=== PATIENT | female | born 1945 | race Caucasian/White ===

== ENCOUNTER 2019-05-04 08:02 | Inpatient (IN) ==
--- NOTE | 2019-04-15 11:27 | Anesthesiology Consultation ---
Date of Service April 15, 2019 Assessment & Plan (1) Encounter for pre-operative examination: Chart Review Chart Review: Pending: Refer to Additional Notes / Consult section (Pending PAT testing) and Patient seen in Pre Admission Testing Consults Requested none History Surgery Operation Date: 05/04/19 10:15 Proposed Procedures p Left Total Knee Arthroplasty - César Chavez DO Height/Weight Height: 5 ft 6 in Weight: 67.4 kg Allergies Allergy/AdvReac Type Severity Reaction Status Date / Time naproxen [From Aleve] Allergy Unknown BLISTERING Verified 04/13/19 15:04 Penicillins Allergy Unknown RASH AND Verified 04/13/19 15:04 EYE SWELLING Medications Home Medications Medication Instructions Recorded Confirmed Last Taken alprazolam [Xanax] 0.25 mg PO DAILY PRN 04/13/19 04/13/19 Unknown amlodipine 5 mg PO QPM 04/13/19 04/13/19 Unknown aspirin [Aspirin Low Dose] 81 mg PO QAM 04/13/19 04/13/19 Unknown atorvastatin 10 mg PO PM 04/13/19 04/13/19 Unknown celecoxib [Celebrex] 200 mg PO QAM 04/13/19 04/13/19 Unknown cholecalciferol (vitamin D3) 1,000 unit PO QPM 04/13/19 04/13/19 Unknown [Vitamin D3] citalopram 20 mg PO QAM 04/13/19 04/13/19 Unknown esomeprazole magnesium [Nexium] 40 mg PO QAM 04/13/19 04/13/19 Unknown fluticasone furoate-vilanterol 1 inh INHALATION QAM 04/13/19 04/13/19 Unknown [Breo Ellipta] furosemide [Lasix] 20 mg PO DAILY PRN 04/13/19 04/13/19 Unknown gabapentin 300 mg PO HS 04/13/19 04/13/19 Unknown levothyroxine 75 mcg PO QAM 04/13/19 04/13/19 Unknown losartan 100 mg PO QAM 04/13/19 04/13/19 Unknown montelukast [Singulair] 10 mg PO PM 04/13/19 04/13/19 Unknown Past Medical History Medical History Allergies STRONG SCENTS Anxiety Asthma Chronic obstructive pulmonary disease Depression Diverticular disease GERD (gastroesophageal reflux disease) Hearing deficit 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 NO RESIDUAL EFFECT. ADMITTED TO [facility] FOR OVERNIGHT. Past Family History Family History Father Family history of diabetes mellitus Grandmother (Maternal) Family hx of colon cancer Grandmother (Maternal) Family history of esophageal cancer Past Surgical History Surgical History History of cataract surgery RIGHT AND LEFT WITH LENS IMPLANTS History of colonoscopy History of esophagogastroduodenoscopy (EGD) History of parathyroid surgery History of total left hip replacement History of total right hip replacement History of umbilical hernia repair Hx of appendectomy Hx of total hysterectomy Social History Smoking Status: Never smoker Do You Dip or Chew Tobacco: No Hx Alcohol Use: No Hx Substance Use: No Physical Exam Vital Signs Last Vital Signs Temp 36.7 C 04/15/19 10:53 Pulse 67 04/15/19 10:53 Resp 18 04/15/19 10:53 BP 109/62 04/15/19 10:53 Pulse Ox 98 04/15/19 10:53 ENMT Mouth: no TMJ abnormality Thyromental Distance: > or= 3.5 Finger Breadths Mallampati Class: II Neck normal visual inspection Respiratory normal respiratory effort Auscultation: lungs clear to auscultation bilaterally Cardiovascular Rate/Rhythm: regular rate and regular rhythm Neurologic moves all extremities Psychiatric Orientation: alert and oriented x 3
[2019-04-15 11:34] LABS: Basophils # (auto) 0.02 K/uL (0-0.2); Basophils % (auto) 0.2 %; Eosinophils # (auto) 0.11 K/uL (0-0.5); Hematocrit (blood only) 37.9 % (37-47); Hemoglobin 12.4 g/dL (12.0-16.0); Immature Granulocytes # (auto) 0.04 K/uL (0.00-0.02); Immature Granulocytes % (auto) 0.4 %; Lymphocytes # (auto) 0.95 K/uL (1.2-3.4); Lymphocytes % (auto) 8.5 %; Mean Corpuscular Hemoglobin 29.8 pg (25-34); Mean Corpuscular Hgb Conc 32.7 g/dL (32-36); Mean Corpuscular Volume 91.1 fL (80-100); Mean Platelet Volume 9.1 fL (7.4-10.4); Monocytes # (auto) 1.44 K/uL (0.11-0.59); Monocytes % (auto) 12.9 %; Neutrophils # (auto) 8.62 K/uL (1.4-6.5); Platelet Count 207 K/uL (130-400); RDW Coefficient of Variation 14.4 % (11.5-14.5); RDW Standard Deviation 48.6 fL (36.4-46.3); Red Blood Count 4.16 M/uL (4.2-5.4); White Blood Count 11.18 K/uL (4.8-10.8)
[2019-04-15 11:41] LABS: Albumin Level 3.5 gm/dl (3.4-5.0); BUN Creatinine Ratio 18.8 (10-20); Calcium 9.1 mg/dl (8.5-10.1); Creatinine Clr Calc Pharmacy 48.9 ml/min; Est GFR (African American) 69.7; Est GFR (Non-African American) 60.1; Potassium 3.8 mmol/L (3.5-5.1)
[2019-04-15 11:44] LABS: Partial Thromboplastin Ratio 0.9; Partial Thromboplastin Time 24.5 Seconds (21.0-31.0); Prothrombin Time 10.3 Seconds (9.0-12.0)
[2019-04-15 11:48] LABS: Appearance Urine Clear (Clear); Bacteria Urine Automated Negative (Negative); Bilirubin Urine Negative (Negative); Blood Urine Trace (Negative); Color Urine Yellow; Glucose Urine UA Negative (Negative); Ketones Urine Negative (Negative); Leukocyte Esterase Urine Negative (Negative); Nitrite Urine Negative (Negative); Protein Urine Negative (Negative); RBC Urine Automated 0-4 /hpf (0-4); Specific Gravity Urine 1.018 (1.000-1.030); Urobilinogen Urine Negative (Negative); pH Urine 5.5 (4.5-7.5)
[2019-04-15 12:06] LABS: Estimated Average Glucose 137 mg/dl; Hemoglobin A1C 6.4 % (4.5-5.6)
--- NOTE | 2019-04-15 12:08 | XRay Report ---
XR chest Pre-admission PA/Lat HISTORY: 73 years-old Female PAT preoperative exam. No acute chest complaints COMPARISON: None available TECHNIQUE: PA and lateral views of the chest FINDINGS: Cardiac silhouette is enlarged. No overt pulmonary edema. Linear subsegmental left basilar atelectasi s/scarring. Moderate hiatal hernia. No pneumothorax, pleural effusion or lobar airspace consolidation typical for pneumonia. Sigmoidal track lumbar scoliosis. Fusion hardware projects over the lower cer vical spine. Surgical clips of the right axilla. IMPRESSION: 1. Cardiomegaly without acute process. 2. Moderate sized hiatal hernia. The above report was generated using voice recognition software. It may contain grammatical, syntax o r spelling errors. Electronically signed by: Dharmesh Gan M.D. 04/15/2019 12:06 PM
--- NOTE | 2019-04-28 12:28 | History & Physical Report ---
Date of Service April 28, 2019 Date of surgery: 05-04-19 Assessment & Plan (1) Osteoarthritis of left knee: Further care discussed with Brinda and at this point in time has failed conservative measures and would like to proceed with a left total knee replacement. Plan on discharge will be home with home health physical therapy. DVT prophalaxis with TEDs, SCDs and will also place on aspirin 81 mg p.o. b.i.d. for a month postop. Patient will have follow up appointment in our office two w eeks post op for staple removal and re-evaluation. Patient otherwise has no other questions or concerns. History of Present Illness Chief Complaint: left knee pain Primary Care Provider: Richard Pardo Ms Hernandez is a 73 year old female who complains of left knee pain, presents for pre-op prior to a left total knee replacement. She presents with pain and stiffness on the left side. She states that the symptoms have been chronic non- traumatic. Patient reports left knee pain many years, progressively getting worse. Currently the patient states that the symptoms are moderate-severe. The pain is described as aching, discomforting and throbbing. current pain is 4/10 and worst is 7/10. The symptoms are aggravated by daily activities, ascending stairs, descending stairs, first steps while awake, kneeling, movement, repetitive activities, sleeping on the affected side, squatting and walking. In addition to left knee pain the patient is also experiencing decreased mobility, difficulty bending, difficulty going to sleep, limping, instability, nighttime awakening, pain, stiffness, tenderness and weakness. Prior NSAIDs include Celebrex and Ibuprofen. Prior pain medications include Tylenol. Patient has had previous therapy. At this point, her pain is affecting her ADLs and would like to proceed with a left total knee replacement. Allergies Allergy/AdvReac Type Severity Reaction Status Date / Time naproxen [From Aleve] Allergy Unknown BLISTERING Verified 04/13/19 15:04 Penicillins Allergy Unknown RASH AND Verified 04/13/19 15:04 EYE SWELLING Home Medications Home Medications Medication Instructions Recorded Confirmed Type alprazolam [Xanax] 0.25 mg PO DAILY PRN 04/13/19 04/13/19 History amlodipine 5 mg PO QPM 04/13/19 04/13/19 History aspirin [Aspirin Low Dose] 81 mg PO QAM 04/13/19 04/13/19 History atorvastatin 10 mg PO PM 04/13/19 04/13/19 History celecoxib [Celebrex] 200 mg PO QAM 04/13/19 04/13/19 History cholecalciferol (vitamin D3) 1,000 unit PO QPM 04/13/19 04/13/19 History [Vitamin D3] citalopram 20 mg PO QAM 04/13/19 04/13/19 History esomeprazole magnesium [Nexium] 40 mg PO QAM 04/13/19 04/13/19 History fluticasone furoate-vilanterol 1 inh INHALATION QAM 04/13/19 04/13/19 History [Breo Ellipta] furosemide [Lasix] 20 mg PO DAILY PRN 04/13/19 04/13/19 History gabapentin 300 mg PO HS 04/13/19 04/13/19 History levothyroxine 75 mcg PO QAM 04/13/19 04/13/19 History losartan 100 mg PO QAM 04/13/19 04/13/19 History montelukast [Singulair] 10 mg PO PM 04/13/19 04/13/19 History Past Med/Surg History Medical History Allergies STRONG SCENTS Anxiety Asthma Chronic obstructive pulmonary disease Depression Diverticular disease GERD (gastroesophageal reflux disease) Hearing deficit 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 NO RESIDUAL EFFECT. ADMITTED TO [facility] FOR OVERNIGHT. Surgical History History of cataract surgery RIGHT AND LEFT WITH LENS IMPLANTS History of colonoscopy History of esophagogastroduodenoscopy (EGD) History of parathyroid surgery History of total left hip replacement History of total right hip replacement History of umbilical hernia repair Hx of appendectomy Hx of total hysterectomy Family History Father Family history of diabetes mellitus Grandmother (Maternal) Family hx of colon cancer Grandmother (Maternal) Family history of esophageal cancer Social History Preferred Language: Taiwanese Communication Ability: Effective Beliefs That Will Affect Care: None Current Living Situation: Alone Feels Safe at Home: Yes Safety Concerns: Feels Safe At This Time Smoking Status: Never smoker Do You Dip or Chew Tobacco: No ; Second Hand Exposure: Yes ( WAS A SMOKER - PASSED 6-7 YR AGO) ; Hx Alcohol Use: No Hx Substance Use: No Review of Systems Review of Systems: All systems reviewed & are unremarkable except as noted in HPI & below Constitutional: no fever, no chills and no sweats Respiratory: no cough and no dyspnea Cardiovascular: no chest pain, no dyspnea and no orthopnea Gastrointestinal: no abdominal pain, no nausea and no vomiting Musculoskeletal: as per Subjective / HPI Physical Exam Physical Exam: Ht: 5ft 6in Wt: 67kg BP: 118/76 Pulse: 70 Constitutional: WD/WN, vitals as above no acute distress Respiratory: normal respiratory effort, lungs clear to auscultation no respiratory distress, no labored breathing and does not use accessory muscles Cardiovascular: RRR, no murmur, no edema Gastrointestinal (Abdomen): normal bowel sounds, soft, nontender, no hepatosplenomegaly Musculoskeletal: Knee: + knee abnormal to inspection (Left Knee: ), + effusion (+1 effusion), + surgical incision (well healed portals), + limited ROM of knee (ROM 0/3/110), + knee ROM with crepitation, + joint line tenderness (medial joint line) and + Anthony's sign positive; no deformity, no skin erythema, no ecchymosis, no valgus laxity, no varus laxity, anterior drawer test negative, Monroe's sign negative and pivot shift test negative Results & Data Laboratory Results Laboratory Results WBC 11.18 K/uL (4.8-10.8) H 04/15/19 11:01 RBC 4.16 M/uL (4.2-5.4) L 04/15/19 11:01 Hgb 12.4 g/dL (12.0-16.0) 04/15/19 11:01 Hct 37.9 % (37-47) 04/15/19 11:01 MCV 91.1 fL (80-100) 04/15/19 11:01 MCH 29.8 pg (25-34) 04/15/19 11:01 MCHC 32.7 g/dL (32-36) 04/15/19 11:01 RDW Std Deviation 48.6 fL (36.4-46.3) H 04/15/19 11:01 RDW Coeff of Jason 14.4 % (11.5-14.5) 04/15/19 11:01 Plt Count 207 K/uL (130-400) 04/15/19 11:01 MPV 9.1 fL (7.4-10.4) 04/15/19 11:01 Immature Gran % (Auto) 0.4 % 04/15/19 11:01 Neut % (Auto) 77.0 % 04/15/19 11:01 Lymph % (Auto) 8.5 % 04/15/19 11:01 [place] % (Auto) 12.9 % 04/15/19 11:01 Eos % (Auto) 1.0 % 04/15/19 11:01 Baso % (Auto) 0.2 % 04/15/19 11:01 Immature Gran # (Auto) 0.04 K/uL (0.00-0.02) H 04/15/19 11:01 Neut # (Auto) 8.62 K/uL (1.4-6.5) H 04/15/19 11:01 Lymph # (Auto) 0.95 K/uL (1.2-3.4) L 04/15/19 11:01 [place]ry # (Auto) 1.44 K/uL (0.11-0.59) H 04/15/19 11:01 Eos # (Auto) 0.11 K/uL (0-0.5) 04/15/19 11:01 Baso # (Auto) 0.02 K/uL (0-0.2) 04/15/19 11:01 PT 10.3 Seconds (9.0-12.0) 04/15/19 11:01 INR 1.0 (0.9-1.1) 04/15/19 11:01 APTT 24.5 Seconds (21.0-31.0) 04/15/19 11:01 PTT Ratio 0.9 04/15/19 11:01 Sodium 142 mmol/L (136-145) 04/15/19 11:01 Potassium 3.8 mmol/L (3.5-5.1) 04/15/19 11:01 Chloride 108 mmol/L (98-107) H 04/15/19 11:01 Carbon Dioxide 28 mmol/L (21-32) 04/15/19 11:01 Anion Gap 6.0 (3-11) 04/15/19 11:01 BUN 17 mg/dl (7-18) 04/15/19 11:01 Creatinine 0.93 mg/dl (0.6-1.2) 04/15/19 11:01 Est Cr Clr Drug Dosing 48.9 ml/min 04/15/19 11:01 Est GFR ( Amer) 69.7 04/15/19 11:01 Est GFR (Non-Af Amer) 60.1 04/15/19 11:01 BUN/Creatinine Ratio 18.8 (10-20) 04/15/19 11:01 Glucose 104 mg/dl (70-99) H 04/15/19 11:01 Estimat Average Glucose 137 mg/dl 04/15/19 11:01 Hemoglobin A1c 6.4 % (4.5-5.6) H 04/15/19 11:01 Calcium 9.1 mg/dl (8.5-10.1) 04/15/19 11:01 Albumin 3.5 gm/dl (3.4-5.0) 04/15/19 11:01 Urine Color Yellow 04/15/19 Unknown Urine Appearance Clear (Clear) 04/15/19 Unknown Urine pH 5.5 (4.5-7.5) 04/15/19 Unknown Ur Specific [place] 1.018 (1.000-1.030) 04/15/19 Unknown Urine Protein Negative (Negative) 04/15/19 Unknown Urine Glucose (UA) Negative (Negative) 04/15/19 Unknown Urine Ketones Negative (Negative) 04/15/19 Unknown Urine Blood Trace (Negative) H 04/15/19 Unknown Urine Nitrite Negative (Negative) 04/15/19 Unknown Urine Bilirubin Negative (Negative) 04/15/19 Unknown Urine Urobilinogen Negative (Negative) 04/15/19 Unknown Ur Leukocyte Esterase Negative (Negative) 04/15/19 Unknown Urine WBC (Auto) 1-5 /hpf (0-5) 04/15/19 Unknown Urine RBC (Auto) 0-4 /hpf (0-4) 04/15/19 Unknown U Hyaline Cast (Auto) 1-5 /lpf (0-5) 04/15/19 Unknown U Epithel Cells (Auto) 5-10 /lpf (0-5) H 04/15/19 Unknown Urine Bacteria (Auto) Negative (Negative) 04/15/19 Unknown Blood Type A Positive 04/15/19 11:01 Antibody Screen NEGATIVE 04/15/19 11:01 Diagnostic Findings Left Knee X-ray confirms advanced degenerative changes to the left knee, greatest medial compartments and patellofemoral joint, showing joint space narrowing, osteophyte formation and subchondral sclerosis. no acute bony pathology noted.
[~2019-05-04 08:02] MED LIST: ACETAMINOPHEN 500 MG TAB PO SCH; BUPIVACAINE 0.5 % 5 MG/1 ML PF 10ML VIAL ONE; CEFAZOLIN 1000MG 1,000 MG/7.5 ML SYR IV SCH; CeleBREX 200 MG CAP PO SCH; EPINEPHrine INJ 1 MG/ML AMP ONE; GABAPENTIN 300 MG CAP PO SCH; LR 500ML BOLUS, THEN 15ML/HR IV SCH; ROPIVACAINE 0.5% 5 MG/ML 30 ML VIAL ONE; ROPIVACAINE 0.5% HCL/PF 150 MG, BUPIVACAINE 0.5% MPF 30 ML, EPINEPHrine 30MG/30ML (OR U... INSTIL SCH; TRANEXAMIC ACID 1,000 MG **IV Intra-op IV SCH; TRANEXAMIC ACID 1,000 MG **IV Pre-op IV SCH; dexAMETHasone 4 MG TAB PO SCH
--- NOTE | 2019-05-04 08:39 | History & Physical Bridge Note ---
Date of Service May 04, 2019 History & Physical Bridge Note I have examined the patient, reviewed the History & Physical and in the interval since the performance of the History & Physical I have noted the following changes of clinical significance: no changes noted
[2019-05-04] MEDS ORDERED: MIDAZOLAM HCL 1 MG/ML 2ML VIAL ONE ×2 (09:01→11:38)
[2019-05-04] MEDS ORDERED: LIDOCAINE HCL 2% 2 ML VIAL/AMP(20MG/ML) INFIL ONE (09:01)
[2019-05-04] MEDS ORDERED: fentaNYL citrate 100 MCG/2 ML VIAL ONE (09:01)
[2019-05-04] MEDS ORDERED: PROPOFOL IV EMULSION 10 MG/ML 20 ML VIAL IV ONE (09:01)
[2019-05-04] MEDS ORDERED: ORTHO JOINT ANESTHETIC ONE (09:58)
[2019-05-04] MEDS ORDERED: BACITRACIN INJ 50,000 UNIT VIAL ONE (09:58)
[2019-05-04] MEDS ORDERED: ATROPINE SULFATE 0.1 MG/ML 10ML SYR IV PRN (11:15)
[2019-05-04] MEDS ORDERED: ePHEDrine sulfate 50 MG/ML AMP IV PRN (11:15)
--- NOTE | 2019-05-04 12:13 | Operative Report ---
Post Operative Report Pre & Post Diagnosis Operation Date: 05/04/19 10:40 Pre-Op Diagnosis: Unilateral Primary Osteoarthritis, Left Knee Post-Op Diagnosis: Unilateral Primary Osteoarthritis, Left Knee I identified the patient and participated in the time-out.: Yes Procedure Operation Date: 05/04/19 10:40 Actual Procedures p Left Total Knee Arthroplasty(Left) utilizing [employer]ino [employer] Nephew journey 2 non- block total knee arthroplasty size 4 femur 3 tibia 10 polyethylene 29 oval patella- César Chavez DO Surgeon César Chavez DO Foreign Language Teacher Klaus RANDLE Estimated Blood Loss 5 Findings Consistent with Post-Op Diagnosis Patient presents with severe end-stage tricompartmental degenerative joint disease of the left knee no response to conservative management eburnated bone subchondral cystic changes marginal osteophytes moderate to large effusion varus alignment Specimens Bone card Drains Meeting more him of Complications none Disposition Accompanied Patient To Recovery: No Disposition: Recovery Room Indications Patient presents is a 73-year-old white female being seen evaluate with swelling going pain through the left knee nonresponse to conservative management including physical therapy anti-inflammatories relative rest activity modification corticosteroid injection Visco supplementation patient presents with the above intraoperative findings as noted above. Description of Procedure After proper identification of the patientAfter proper prepping and draping of the left lower extremity anterior midline incision was made over the region of the extensor extensor mechanism after meticulous hemostasis was obtained and maintained in subcutaneous tissues a medial parapatellar incision was made The patella was subluxed lateralward the medial lateral gutter were cleaned from any hypertrophic synovitis and scar tissue of the distal femoral block was placed and the distal femoral osteotomy cut was made subsequently the chamfers anterior and posterior osteotomy cuts were made utilizing the 4-in-1 block the tibia was subsequently subluxed anteriorward medial and ateral meniscal remnants were excised in their entirety remnants of the anterior and posterior cruciate ligaments were excised in their entirety excellent exposure of the proximal tibia was obtained the tibial osteotomy guide was placed on the proximal tibial osteotomy cut was made once again the knee was irrigated with copious amounts of sterile saline solution the patella was subsequently everted lateralward thickened scar tissue around the patella was removed the patella was subsequently cut utilizing a freehand technique and was drilled prepared for final preparation and placement of patella socially flexion-extension gaps were checked and the equal and symmetric trials were placed to the appropriate femoral and tibial trials with poly-spacer being placed for equal flexion and extension gaps and full range of motion including extension to 0 and flexion to 140 the trial components after having been taken to recovery range of motion was subsequently removed meticulous hemostasis was obtained and maintained subsequently a knee block injection of joint cocktail including ropivacaine 0.5% 150 mg. Bupivacaine 0.5% epinephrine 1-200,030 mL's toradol 30 mg dexamethasone 4 mg ketamine 10 mg clonidine 100 micrograms normal saline solution 30 mg was infiltrated into the soft tissues of the posterior knee medial lateral gutters and periosteal synovium special attention was paid to protect neurovascular structures at all times subsequently trial components having been removed the knee was irrigated with sterile saline solution. debris was removed the proximal tibia was subsequently prepared and was made ready for the placement of the tibial component tibial component was also cemented and tamped into position the femoral component was subsequently placed and cemented in the position the patellar component was subsequently cemented in position because hemostasis once again obtained and maintained wound having been thoroughly irrigated with debridement and debridement lavage was performed as well as a medial parapatellar incision closed with #1 Vicryl in interrupted fashion subcutaneous was closed with #2 Vicryl skin was closed with skin clips. PA-C was necessary for prepping and drapping as well as wound closure of deep fascia Sub cutaneous tissue and skin and was necessary for the case. A sterile compressive dressing was placed patient was taken to recovery in stable condition of report dictated by Scott I attest to the content of the Intraoperative Record and any orders documented therein. Any exceptions are noted below. I attest to the content of the Intraoperative Record and any orders documented therein. Any exceptions are noted below.
--- NOTE | 2019-05-04 13:38 | XRay Report ---
XR knee LT 2V routine CLINICAL HISTORY: Surgical Post Op COMPARISON: None. DISCUSSION: There are postsurgical changes of a total left knee arthroplasty and patellar resurfacing . Overlying skin lissette and surgical drains are evident. The femoral tibial components appear well s eated. There is air within the soft tissues consistent with recent surgery. IMPRESSION: Postsurgical changes of a total left knee arthroplasty. Electronically signed by: Js Navarro M.D. 05/04/2019 1:36 PM
--- NOTE | 2019-05-04 13:50 | Anesthesiology Progress Note ---
Date of Service May 04, 2019 Anesthesia Post Procedure Vital Signs Vital Signs: Temp Pulse Pulse Resp BP Pulse Ox 05/04/19 13:45 61 16 102/54 L 94 05/04/19 13:35 63 16 111/59 L 95 05/04/19 13:25 64 16 109/57 L 93 05/04/19 13:15 62 16 112/58 L 96 05/04/19 13:05 67 16 111/58 L 94 05/04/19 12:58 36.4 C L 72 16 99/60 L 93 05/04/19 08:44 36.7 C 64 20 125/75 95 Pain Intensity Generalized: Pain Intensity: 3 Transfer of Care Handoff Completed per policy Notes Mental Status: alert / awake / arousable Patient Amnestic to Procedure: Yes Nausea / Vomiting: adequately controlled Pain: adequately controlled Airway Patency, RR, SpO2: stable & adequate BP & HR: stable & adequate Hydration State: stable & adequate Neuraxial Anesthesia: was administered and sensory block is resolving Anesthetic Complications: no major complications apparent
[2019-05-04] MEDS ORDERED: ONDANSETRON INJ 2 MG/ML 2 ML VIAL IV PRN (14:21)
[2019-05-04] MEDS ORDERED: bisacodyL 10 MG SUPP PR PRN (14:21)
[2019-05-04] MEDS ORDERED: MAGNESIUM HYDROXIDE SUSP 30 ML UDC PO PRN (14:21)
[2019-05-04] MEDS ORDERED: NALOXONE HCL 0.4 MG/1 ML VIAL/CARP IV PRN (14:21)
[2019-05-04] MEDS ORDERED: ALPRAZolam 0.25 MG TABLET PO PRN (14:21)
[2019-05-04] MEDS: SODIUM CHLORIDE 0.9% 1000ML 1,000 ML IV SCH (14:45)
--- NOTE | 2019-05-04 16:27 | Hospitalist Consultation ---
Date of Consultation May 04, 2019 Assessment & Plan (1) Post-operative state: s/p L TOMÁS 05/04 Pain control, dvt proph per primary Monitor for acute blood loss - cbc am (2) Hypertension: continue amlodipine, hold losartan pod #1 to avoid hypotension prp am (3) GERD (gastroesophageal reflux disease): Continue ppi (4) COPD (chronic obstructive pulmonary disease): Continue montelukast, Breo ellipta (5) Hyperlipemia: continue atorvastatin History of Present Illness Attending Physician: César Chavez, History of Present Illness Ms. Hernandez is post left TKA today with Dr. Chavez. Her pain is well controlled and she is feeling good since surgery. Past medical history of COPD, asthma, hypothyroid, GERD, htn, hld Social: lives alone, retired [employer], never smoker, occasional alcohol Family: father of cancer and had CAD, DM; Mother with heart disease and dementia Allergies Allergy/AdvReac Type Severity Reaction Status Date / Time naproxen [From Aleve] Allergy Mild BLISTERING Verified 05/04/19 08:37 Penicillins Allergy Mild RASH AND Verified 05/04/19 08:37 EYE SWELLING oxycodone AdvReac Intermediate nightmares Verified 05/04/19 09:15 and hallucinations Home Medications Home Medications Medication Instructions Recorded Confirmed Type alprazolam [Xanax] 0.25 mg PO DAILY PRN 04/13/19 05/04/19 History amlodipine 5 mg PO QPM 04/13/19 05/04/19 History aspirin [Aspirin Low Dose] 81 mg PO QAM 04/13/19 05/04/19 History atorvastatin 10 mg PO PM 04/13/19 05/04/19 History celecoxib [Celebrex] 200 mg PO QAM 04/13/19 05/04/19 History cholecalciferol (vitamin D3) 1,000 unit PO QPM 04/13/19 05/04/19 History [Vitamin D3] citalopram 20 mg PO QAM 04/13/19 05/04/19 History esomeprazole magnesium [Nexium] 40 mg PO QAM 04/13/19 05/04/19 History fluticasone furoate-vilanterol 1 inh INHALATION QAM 04/13/19 05/04/19 History [Breo Ellipta] furosemide [Lasix] 20 mg PO DAILY PRN 04/13/19 05/04/19 History gabapentin 300 mg PO HS 04/13/19 05/04/19 History levothyroxine 75 mcg PO QAM 04/13/19 05/04/19 History losartan 100 mg PO QAM 04/13/19 05/04/19 History montelukast [Singulair] 10 mg PO PM 04/13/19 05/04/19 History Patient History Medical History Allergies STRONG SCENTS Anxiety Asthma Chronic obstructive pulmonary disease Depression Diverticular disease GERD (gastroesophageal reflux disease) Hearing deficit 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 NO RESIDUAL EFFECT. ADMITTED TO [facility] FOR OVERNIGHT. Surgical History History of cataract surgery RIGHT AND LEFT WITH LENS IMPLANTS History of colonoscopy History of esophagogastroduodenoscopy (EGD) History of parathyroid surgery History of total left hip replacement History of total right hip replacement History of umbilical hernia repair Hx of appendectomy Hx of total hysterectomy Family History Father Family history of diabetes mellitus Grandmother (Maternal) Family hx of colon cancer Grandmother (Maternal) Family history of esophageal cancer Social History Preferred Language: Gambian Communication Ability: Effective Beliefs That Will Affect Care: None Current Living Situation: Alone Feels Safe at Home: Yes Safety Concerns: Feels Safe At This Time Smoking Status: Never smoker Do You Dip or Chew Tobacco: No ; Second Hand Exposure: Yes ( WAS A SMOKER - PASSED 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 YR AGO) ; Hx Alcohol Use: No Hx Substance Use: No Review of Systems Constitutional: no fever, no chills and no body aches Respiratory: no cough, no chest congestion and no dyspnea Cardiovascular: no chest pain, no palpitations and no lightheadedness Gastrointestinal: no abdominal pain and no nausea Genitourinary: no dysuria, no difficulty urinating and no urinary frequency Musculoskeletal: no joint pain Integumentary: + rash Physical Exam Physical Exam: General: no distress Eyes: normal inspection, PERLL Respiratory: chest non tender, clear to auscultation, normal breath sounds, no respiratory distress, no accessory muscle use Cardiac: regular rate and rhythm, no rub or gallop, no murmur, no edema, no jvd GI/: active bowel sounds, no abd pain or tenderness, soft, non distended Extremities: normal range of motion, normal strength, non tender Neuro/Psych: alert and oriented x 3, normal mood and affect Skin: normal color, dry Results & Data Vital Signs (Past 12 Hours) Vital Signs Temp Pulse Pulse Resp BP Pulse Ox 05/04/19 16:17 36.5 C 65 17 104/59 L 96 05/04/19 15:19 36.7 C 66 17 107/69 96 05/04/19 14:39 65 18 114/76 93 05/04/19 14:15 36.6 C 68 15 95/51 L 94 05/04/19 13:55 36.6 C 63 20 108/59 L 95 05/04/19 13:45 61 16 102/54 L 94 05/04/19 13:35 63 16 111/59 L 95 05/04/19 13:25 64 16 109/57 L 93 05/04/19 13:15 62 16 112/58 L 96 05/04/19 13:05 67 16 111/58 L 94 05/04/19 12:58 36.4 C L 72 16 99/60 L 93 05/04/19 08:44 36.7 C 64 20 125/75 95 PG Care Time/CCT Total # of Minutes Spent Total Time Spent with Patient: Total time spent is greater than 50% in coordination of care (as documented) at patient's floor/unit and/or counseling patient:
[2019-05-04] MEDS: CEFAZOLIN 1000MG 1,000 MG/7.5 ML SYR IV SCH (20:58)
[2019-05-04] MEDS: ASPIRIN 81 MG ECTAB PO SCH (21:00)
[2019-05-04] MEDS: ATORVASTATIN 10 MG TAB PO SCH (21:00)
[2019-05-04] MEDS: CeleBREX 200 MG CAP PO SCH (21:02)
[2019-05-04] MEDS: DOCUSATE SODIUM 100 MG CAP PO SCH (21:02)
[2019-05-04] MEDS: GABAPENTIN 300 MG CAP PO SCH (21:03)
[2019-05-04] MEDS: AMLODIPINE BESYLATE 5 MG TAB PO SCH (21:03)
[2019-05-04] MEDS: MONTELUKAST SODIUM 10 MG TABLET PO SCH (21:03)
[2019-05-04] MEDS: SENNA 8.6 MG TAB PO SCH (21:04)
[2019-05-04] MEDS: CHOLECALCIFEROL 1,000 UNITS TAB PO SCH (21:05)
[2019-05-04] MEDS: HYDROCODONE/ACETAMOPHEN 5/325MG TAB PO PRN (21:12)
[2019-05-05] MEDS: SODIUM CHLORIDE 0.9% 1000ML 1,000 ML IV SCH (01:33)
[2019-05-05] MEDS: CEFAZOLIN 1000MG 1,000 MG/7.5 ML SYR IV SCH (02:46)
[2019-05-05] MEDS: HYDROCODONE/ACETAMOPHEN 5/325MG TAB PO PRN ×4 (02:52→20:38)
[2019-05-05] MEDS: HYDROmorphone INJ 0.5 MG/0.5 ML SYR IV PRN ×3 (03:55→23:42)
[2019-05-05 05:23] LABS: Hematocrit (blood only) 31.4 % (37-47); Hemoglobin 10.7 g/dL (12.0-16.0); Mean Corpuscular Hemoglobin 30.7 pg (25-34); Mean Corpuscular Hgb Conc 34.1 g/dL (32-36); Mean Platelet Volume 8.3 fL (7.4-10.4); Platelet Count 229 K/uL (130-400); RDW Coefficient of Variation 13.8 % (11.5-14.5); RDW Standard Deviation 45.4 fL (36.4-46.3); Red Blood Count 3.49 M/uL (4.2-5.4); White Blood Count 15.96 K/uL (4.8-10.8)
[2019-05-05 05:56] LABS: Calcium 8.1 mg/dl (8.5-10.1); Creatinine Clr Calc Pharmacy 59.1 ml/min; Est GFR (African American) 87.5; Est GFR (Non-African American) 75.5; Potassium 4.5 mmol/L (3.5-5.1)
[2019-05-05] MEDS: LEVOTHYROXINE SODIUM 75 MCG TABLET PO SCH (05:58)
[2019-05-05] MEDS: LOSARTAN POTASSIUM 50 MG TAB PO SCH (08:10)
[2019-05-05] MEDS: FLUTICASONE/SALMETEROL 100/50 (ADVAIR) 14 PUFF/1 INHALER INH SCH ×2 (08:10→20:35)
[2019-05-05] MEDS: MULTIVITAMIN TAB PO SCH (08:11)
[2019-05-05] MEDS: ASPIRIN 81 MG ECTAB PO SCH ×2 (08:11→20:34)
[2019-05-05] MEDS: CeleBREX 200 MG CAP PO SCH ×2 (08:11→20:34)
[2019-05-05] MEDS: CITALOPRAM 20 MG TAB PO SCH (08:11)
[2019-05-05] MEDS: PANTOprazole 40 MG TAB PO SCH (08:11)
[2019-05-05] MEDS: DOCUSATE SODIUM 100 MG CAP PO SCH ×2 (08:12→20:34)
--- NOTE | 2019-05-05 08:38 | Anesthesiology Progress Note ---
Date of Service May 05, 2019 Anesthesia Post Procedure Vital Signs Vital Signs: Temp Pulse Pulse Resp BP Pulse Ox 05/05/19 07:30 36.5 C 58 L 16 108/65 92 05/05/19 02:53 36.4 C L 61 16 109/59 L 92 05/05/19 00:17 119/65 05/04/19 23:35 36.3 C L 59 L 16 107/60 93 05/04/19 20:00 123/76 05/04/19 17:21 36.5 C 62 17 97/56 L 95 05/04/19 16:17 36.5 C 65 17 104/59 L 96 05/04/19 15:19 36.7 C 66 17 107/69 96 05/04/19 14:39 65 18 114/76 93 05/04/19 14:15 36.6 C 68 15 95/51 L 94 05/04/19 13:55 36.6 C 63 20 108/59 L 95 05/04/19 13:45 61 16 102/54 L 94 05/04/19 13:35 63 16 111/59 L 95 05/04/19 13:25 64 16 109/57 L 93 05/04/19 13:15 62 16 112/58 L 96 05/04/19 13:05 67 16 111/58 L 94 05/04/19 12:58 36.4 C L 72 16 99/60 L 93 05/04/19 08:44 36.7 C 64 20 125/75 95 Pain Intensity Generalized: Pain Intensity: 3 Left Knee: Pain Intensity: 3 Notes Mental Status: alert / awake / arousable and participated in evaluation Patient Amnestic to Procedure: Yes Nausea / Vomiting: adequately controlled Pain: adequately controlled Airway Patency, RR, SpO2: stable & adequate BP & HR: stable & adequate Hydration State: stable & adequate Neuraxial Anesthesia: was administered and sensory block resolved Anesthetic Complications: no major complications apparent and Pt Satisfied with anesthetic care
--- NOTE | 2019-05-05 09:51 | Orthopedic Progress Note ---
Date of Service May 05, 2019 Assessment & Plan (1) Osteoarthritis of left knee: POD#1 Left TKA -Pain management -PT/OT -DVT prophylaxis-ASA 81mg BID, SCDs, TEDs -AM labs-hemoglobin 10.7 from 12.4 preop. BPs have been running a little low, patient is asymptomatic. Will monitor -D/C planning-home with home health PT when stable. Subjective Patient is POD#1 left TKA. Doing well overall, mild pain. BPs have been running low, she is asymptomatic. Denies complaitns. No chest pain, sob, dizziness, headaches, n/v/d. Review of Systems Review of Systems: All systems reviewed & are unremarkable except as noted in HPI & below Physical Exam Physical Exam: Patient sitting in bedside chair getting ready to participate in PT. No calf tenderness. Dressing is c/d/i, hemovac intact. Good dorsiflexion of her ankle. N/V status and sensation intact. Constitutional: well developed and well nourished; no acute distress Results & Data Vital Signs (Past 12 Hours) Vital Signs Temp Pulse Pulse Resp BP Pulse Ox 05/05/19 07:30 36.5 C 58 L 16 108/65 92 05/05/19 02:53 36.4 C L 61 16 109/59 L 92 05/05/19 00:17 119/65 05/04/19 23:35 36.3 C L 59 L 16 107/60 93 Laboratory Results H & H 04/15/19 05/05/19 Range/Units 11:01 04:53 Hgb 12.4 10.7 L (12.0-16.0) g/dL Hct 37.9 31.4 L (37-47) % Coagulation 04/15/19 Range/Units 11:01 INR 1.0 (0.9-1.1) (1) Osteoarthritis of left knee Osteoarthritis type: primary Qualified Code(s): M17.12 - Unilateral primary osteoarthritis, left knee
--- NOTE | 2019-05-05 17:23 | Hospitalist Progress Note ---
Date of Service May 05, 2019 Assessment & Plan (1) Post-operative state: s/p L TOMÁS 05/04 Pain control, dvt proph per primary Monitor for acute blood loss - cbc am (2) Hypertension: continue amlodipine, resume losartan tomorrow Patient mildly hypotensive today but no symptoms, could provide a fluid bolus if she becomes symptomatic prp am (3) GERD (gastroesophageal reflux disease): Continue ppi (4) COPD (chronic obstructive pulmonary disease): Continue montelukast, Breo ellipta (5) Hyperlipemia: continue atorvastatin (6) Prediabetes: Patient's preop A1c was 6.4 which was a new finding for her. We discussed the meaning of her A1c and a prediabetes diagnosis. Answered all questions, discussed diet and exercise Consulted folder seamer automatic Medicine will sign off at this time. Thank you for involving us in this patient's care. Supervising Physician Co-Signing Physician Notes I supervised Yvonne Laguerre NP on this patient's care. I examined the patient today independently of her. I discussed the plan of care with her with the plan being as written in her note except for any following changes/exceptions: None. Slightly low BP, though she is asymptomatic. Can trend and be sure she is feeling well before discharge. Subjective Feeling good, no complaints. Painful but tolerable ROS Constitutional: no chills, aches, sweats or fever Respiratory: no sob,cough, sputum, or wheezing Cardiac: no chest pain, palpitations, edema, orthopnea or lightheadedness GI: no abdominal pain, nausea, vomiting, diarrhea or constipation : no dysuria or hesitancy Extremities: no joint pain or weakness Skin: no rash All other systems reviewed and negative Physical Exam Physical Exam: General: no distress Eyes: normal inspection, PERLL Respiratory: chest non tender, clear to auscultation, normal breath sounds, no respiratory distress, no accessory muscle use Cardiac: regular rate and rhythm, no rub or gallop, no murmur, no edema, no jvd GI/: active bowel sounds, no abd pain or tenderness, soft, non distended Extremities: normal range of motion, normal strength, non tender Neuro/Psych: alert and oriented x 3, normal mood and affect Skin: normal color, dry Results & Data Vital Signs (Past 12 Hours) Vital Signs Temp Pulse Pulse Resp BP Pulse Ox Pulse Ox 05/05/19 15:36 36.8 C 54 L 17 99/52 L 95 05/05/19 12:00 36.6 C 58 L 16 97/57 L 91 05/05/19 10:25 94 05/05/19 07:30 36.5 C 58 L 16 108/65 92 PG Care Time/CCT Total # of Minutes Spent Total Time Spent with Patient: Total time spent is greater than 50% in coordination of care (as documented) at patient's floor/unit and/or counseling patient:
[2019-05-05] MEDS: AMLODIPINE BESYLATE 5 MG TAB PO SCH (20:33)
[2019-05-05] MEDS: CHOLECALCIFEROL 1,000 UNITS TAB PO SCH (20:34)
[2019-05-05] MEDS: SENNA 8.6 MG TAB PO SCH (20:34)
[2019-05-05] MEDS: GABAPENTIN 300 MG CAP PO SCH (20:34)
[2019-05-05] MEDS: MONTELUKAST SODIUM 10 MG TABLET PO SCH (20:35)
[2019-05-05] MEDS: ATORVASTATIN 10 MG TAB PO SCH (20:36)
[2019-05-06] MEDS: HYDROCODONE/ACETAMOPHEN 5/325MG TAB PO PRN ×2 (05:13→10:10)
[2019-05-06] MEDS: LEVOTHYROXINE SODIUM 75 MCG TABLET PO SCH (05:30)
[2019-05-06] MEDS: DOCUSATE SODIUM 100 MG CAP PO SCH (07:36)
[2019-05-06] MEDS: MULTIVITAMIN TAB PO SCH (07:36)
[2019-05-06] MEDS: CeleBREX 200 MG CAP PO SCH (07:36)
[2019-05-06] MEDS: FLUTICASONE/SALMETEROL 100/50 (ADVAIR) 14 PUFF/1 INHALER INH SCH (07:36)
[2019-05-06] MEDS: PANTOprazole 40 MG TAB PO SCH (07:36)
[2019-05-06] MEDS: ASPIRIN 81 MG ECTAB PO SCH (07:36)
[2019-05-06] MEDS: CITALOPRAM 20 MG TAB PO SCH (07:36)
--- NOTE | 2019-05-06 09:20 | Orthopedic Progress Note ---
Date of Service May 06, 2019 Assessment & Plan (1) Osteoarthritis of left knee: POD#2 Left TKA -Pain management -PT/OT -DVT prophylaxis-ASA 81mg BID, SCDs, TEDs -D/C planning-home with home health PT today. Subjective Pt sitting in chair at bedside. Just finishing PT. Therapist states she's doing very well. Pt states she's having some pain but tolerating well. Discussed that we cannot take all of the pain away but do want to keep it controlled. Pt understands. She's hoping to go home today. No other complaints. Denies SOB,CP,LH. Physical Exam Physical Exam: Silverlon dressing C/D/I. Mild drainage in the dressing window. Calves soft,NT. NV intact. Toes mobile. Results & Data Vital Signs (Past 12 Hours) Vital Signs Temp Pulse Pulse Pulse Resp BP BP 05/06/19 07:34 67 126/57 L 05/06/19 06:07 36.6 C 55 L 18 114/62 05/06/19 05:34 59 L 128/78 05/05/19 23:38 60 113/71 05/05/19 23:10 36.6 C 58 L 16 97/56 L Pulse Ox 05/06/19 07:34 05/06/19 06:07 90 05/06/19 05:34 05/05/19 23:38 05/05/19 23:10 93 (1) Osteoarthritis of left knee Osteoarthritis type: primary Qualified Code(s): M17.12 - Unilateral primary osteoarthritis, left knee
[2019-05-06] MEDS: LOSARTAN POTASSIUM 50 MG TAB PO SCH (09:47)
--- NOTE | 2019-05-11 14:57 | Discharge Summary ---
Date of Service May 11, 2019 Admission HPI Per Admitting Provider Ms Hernandez is a 73 year old female who complains of left knee pain, presents for pre-op prior to a left total knee replacement. She presents with pain and stiffness on the left side. She states that the symptoms have been chronic non- traumatic. Patient reports left knee pain many years, progressively getting worse. Currently the patient states that the symptoms are moderate-severe. The pain is described as aching, discomforting and throbbing. current pain is 4/10 and worst is 7/10. The symptoms are aggravated by daily activities, ascending stairs, descending stairs, first steps while awake, kneeling, movement, repetitive activities, sleeping on the affected side, squatting and walking. In addition to left knee pain the patient is also experiencing decreased mobility, difficulty bending, difficulty going to sleep, limping, instability, nighttime awakening, pain, stiffness, tenderness and weakness. Prior NSAIDs include Celebrex and Ibuprofen. Prior pain medications include Tylenol. Patient has had previous therapy. At this point, her pain is affecting her ADLs and would like to proceed with a left total knee replacement. Admission Exam Per Admitting Provider Physical Exam: Ht: 5ft 6in Wt: 67kg BP: 118/76 Pulse: 70 Constitutional: WD/WN, vitals as above no acute distress Respiratory: normal respiratory effort, lungs clear to auscultation no respiratory distress, no labored breathing and does not use accessory muscles Cardiovascular: RRR, no murmur, no edema Gastrointestinal (Abdomen): normal bowel sounds, soft, nontender, no hepatosplenomegaly Musculoskeletal: Knee: + knee abnormal to inspection (Left Knee: ), + effusion (+1 effusion), + surgical incision (well healed portals), + limited ROM of knee (ROM 0/3/110), + knee ROM with crepitation, + joint line tenderness (medial joint line) and + Anthony's sign positive; no deformity, no skin erythema, no ecchymosis, no valgus laxity, no varus laxity, anterior drawer test negative, Monroe's sign negative and pivot shift test negative Principal Diagnosis Osteoarthritis left knee Discharge Exam Silverlon dressing C/D/I. Mild drainage in the dressing window. Calves soft,NT. NV intact. Toes mobile. Results & Data Vital Signs (Past 12 Hours) Vital Signs Temp Pulse Pulse Pulse Resp BP BP 05/06/19 07:34 67 126/57 L 05/06/19 06:07 36.6 C 55 L 18 114/62 05/06/19 05:34 59 L 128/78 05/05/19 23:38 60 113/71 05/05/19 23:10 36.6 C 58 L 16 97/56 L Discharge Data Allergies Allergy/AdvReac Type Severity Reaction Status Date / Time naproxen [From Aleve] Allergy Mild BLISTERING Verified 05/04/19 08:37 Penicillins Allergy Mild RASH AND Verified 05/04/19 08:37 EYE SWELLING oxycodone AdvReac Intermediate nightmares Verified 05/04/19 09:15 and hallucinations Consultations 05/04/19 14:21 Consult Case Management - Discharge Planning Routine Consult Hospitalist Routine Procedures Performed Operation Date: 05/04/19 10:40 Actual Procedures p Left Total Knee Arthroplasty(Left) - César Chavez DO Ordered Studies 05/04/19 05:00 US - OR guided needle placemen Routine Hospital Course (1) Osteoarthritis of left knee: Patient was admitted on the above-noted date and had the above-noted surgery performed which she tolerated well. On her first postoperative day she was having some mild pain in the operative site. Blood pressure has been running a little bit low but she was asymptomatic denied chest pain shortness of breath dizziness or headaches. Calves are soft nontender, dressings are clean dry intact, neurovascular was intact. She was started on posterior protocol co ntinued on DVT prophylaxis and pain management. Hemoglobin was 10.7.By her second postoperative day, she had just finished physical therapy stated that she was doing very well. She was having some pain in the knee but was tolerating well. He had no other complaints. Denies shortness of breath, chest pain, lightheadedness. Silverlon dressing was clean, dry, intact. She had mild drainage in the dressing window. Calves are soft nontender and neurovascular is intact. Blood pressure this morning was 126/57. She was continuing with her PT and OT protocol which she was progressing well. She was remaining stable and was felt to be discharged home. Total Time Total Time Spent Total Time Spent (In Minutes): 5 Discharge Plan Discharge Items Patient Disposition: Home - Home Health Services Reason For Visit: Unilateral Primary Osteoarthritis, Left Knee Discharge Diagnosis: Left Knee Osteoarthritis Activity: Per Instructions section Weightbearing: Left weightbearing Weightbearing Comment: as tolerated with walker Non-emergency contact: Surgeon Call non-emergency contact if: your pain is not controlled, your temperature is above 101.5, your wound has increased redness and your wound has increased drainage Follow-up/Referrals: Richard Pardo M.D. [Primary Care Provider] - Diet: Regular Addtl Attending Provider Instructions: ACTIVITY RECOMMENDATIONS: SELF CARE INSTRUCTIONS AFTER TOTAL KNEE REPLACEMENT A. You may need to continue a physical therapy program after discharge from the hospital. There are several options available to you. Your doctor will assist you in selecting the best one for you. 1. An out-patient facility 2 to 3 times a week for therapy or home therapy. 2. Continue working on all exercises taught to you in the hospital. Your goals should be to increase bending of your knee to 90 degrees and beyond and to fully straighten your knee. B. You may progress at your own pace from walking with a walker or crutches to a cane; then to no assistive devices. C. Make walking a part of your daily routine. Be up as much as comfortable with rest periods throughout the day. Rest with leg elevation is very important. Use the ice wrap frequently for the first 3-4 weeks. D. There are no restrictions on activities. You may ride in a car, shop, participate in sliver former and all social activities. E. Wear the long elastic stockings (ADWOA hose) 20 hours a day for 2 weeks after surgery. They can be removed several times a day for laundering and for a bath. F. You may shower, no tub baths until cleared by your doctor. SPECIAL CARE INSTRUCTIONS: VERY IMPORTANT TO READ AND REVIEW A. There are a few signs you need to watch for after you are home. Call [facility] if you notice any of the followin. Increased severe knee pain. Some pain is expected especially when you exercise. 2. Increased swelling in your leg or knee; pain or swelling of the calf muscle in either lower leg. 3. Any fluid drainage from the incision. 4. Shortness of breath or chest pain. B. Please call [facility] at if you have any concerns or questions about your operation or recovery. The doctor or his nurse will return your call promptly. C. You must take antibiotics before dental work, bladder, bowel or other surgery. Your doctor will provide you with a permanent care to carry describing this precaution. IMPORTANT: * REMEMBER TO TAKE ASPIRIN, 81 MG, TWICE DAILY FOR 4 WEEKS UNLESS OTHERWISE DIRECTED. THIS IS YOUR BLOOD THINNER. * HIGH RISK PATIENTS MAY BE PRESCRIBED A STRONGER BLOOD THINNER. THIS WILL BE PROVIDED AT DISCHARGE. * CALL IF INCREASED PAIN, REDNESS, DRAINAGE OR FEVER GREATER THAT 101. * WEAR ADWOA HOSE 20 HOURS PER DAY FOR 2 WEEKS. * Silverlon- This is a large adhesive bandage that contains silver ions. This helps your incision heal by fighting off bacteria and protecting it from the outside environment. You are permitted to shower with this dressing. This will remain on your incision for 7 days and then should be removed. Some visible blood or drainage through the dressing window is normal. If there is significant drainage or leaking noted before the 7 days notify your doctor's office immediately. Once removed, keep incision clean and dry. If there is any drainage or redness noted, please call your surgeon. . FOLLOW UP VISIT: If appointment is not already scheduled: Please call [facility] to make a follow-up appointment for 2 weeks after your surgery at . Stand-Alone Forms: My [facility], Opioid Pain Management Medications and DC Order Prescriptions: New hydrocodone-acetaminophen [Machias] 5-325 mg Tablet 1 - 2 tab PO Q6H PRN (Reason: pain) Qty: 30 RF: 0 aspirin [Ecotrin Low Strength] 81 mg Tablet,Delayed Release (Dr/Ec) 81 mg PO BID 30 Days Qty: 60 RF: 0 sennosides [Senokot] 8.6 mg Tablet 17.2 mg PO HS PRN (Reason: constipation) Qty: 30 RF: 0 doxycycline hyclate 100 mg capsule 100 mg PO BID 14 Days Qty: 28 RF: 1 celecoxib [Celebrex] 200 mg capsule 200 mg PO BID PRN (Reason: pain) Qty: 28 RF: 0 Continued atorvastatin 10 mg Tablet 10 mg PO PM RF: 0 amlodipine 5 mg Tablet 5 mg PO QPM RF: 0 levothyroxine 75 mcg Tablet 75 mcg PO QAM RF: 0 alprazolam [Xanax] 0.25 mg Tablet 0.25 mg PO DAILY PRN (Reason: Anxiety) RF: 0 citalopram 20 mg Tablet 20 mg PO QAM RF: 0 esomeprazole magnesium [Nexium] 40 mg Capsule,Delayed Release(Dr/Ec) 40 mg PO QAM RF: 0 gabapentin 300 mg Capsule 300 mg PO HS RF: 0 montelukast [Singulair] 10 mg Tablet 10 mg PO PM RF: 0 furosemide [Lasix] 20 mg Tablet 20 mg PO DAILY PRN (Reason: Edema) RF: 0 losartan 100 mg Tablet 100 mg PO QAM RF: 0 cholecalciferol (vitamin D3) [Vitamin D3] 1,000 unit Capsule 1,000 unit PO QPM RF: 0 Breo Ellipta 100-25 mcg/dose Blister With Device 1 inh INHALATION QAM RF: 0 Discontinued celecoxib [Celebrex] 200 mg Capsule 200 mg PO QAM RF: 0 aspirin [Aspirin Low Dose] 81 mg Tablet,Delayed Release (Dr/Ec) 81 mg PO QAM RF: 0 Discharge Orders: Discharge Order (Routine); Ordered 05/06/19 Ordered By: Klaus Jose/Other Patient Handouts: Surgery Prevent DVT After, Prediabetes, Diabetes Group Home Complications, Diabetes Healthy Meals, Diabetes Carbs, Tips Knee Post Op, Diabetes Exercise Benefits, Diabetes Exercise Get Started, Diabetes Activity Tips, Diabetes Manage A1C Test Admission Data Admit Date/Time: 05/04/19 13:10 Attending Provider: César Chavez Admit Provider: César Chavez Primary Care Provider: Richard Pardo Other Providers: Rashawn Ford. Other Interventions: Discharge Summary Assessment (RN) Last Done: 05/06/19 09:50 DC Date/Time DO NOT enter until pt leaves facility: 05/06/19 13:09
== END 2019-05-06 13:09 | disposition home health service (06) | DRG 470 ==
LOC: ASU 08:02 → 3E 13:10